=== PATIENT | female | born 1980 | race Two or more races ===

== ENCOUNTER 2020-12-15 09:49 | Emergency (ER) | payer BC, OTHER ==
[~2020-12-15] VITALS: Ht 167.6 cm; Wt 68.0 kg
[2020-12-15 10:53] LABS: Basophils # (auto) 0 10 ^3/uL (0-0.2); Basophils % (auto) 0.6 % (0.0-2.0); Eosinophils # (auto) 0 10 ^3/uL (0-0.8); Eosinophils % (auto) 0.4 % (0.0-7.0); Hematocrit 37.1 % (36.0-46.0); Hemoglobin 12.2 g/dL (12.2-16.2); Lymphocytes # (auto) 1.2 10 ^3/uL (0.4-5.4); Lymphocytes % (auto) 17.2 % (10.0-50.0); Mean Corpuscular Hemoglobin 26.3 pg (28.0-32.0); Mean Corpuscular Hgb Conc. 32.8 g/dL (32.0-36.0); Mean Corpuscular Volume 80.3 fL (80.0-100.0); Monocytes # (auto) 0.4 10 ^3/uL (0-1.3); Monocytes % (auto) 5.6 % (0.0-12.0); Neutrophils # (auto) 5.3 10 ^3/uL (1.6-8.6); Neutrophils % (auto) 76.2 % (37.0-80.0); Red Blood Cells 4.62 10^6/uL (4.0-5.20); Red Cell Distribution Width 15.4 % (11.8-14.3)
[2020-12-15 11:17] LABS: Potassium 4.5 mmol/L (3.5-5.1)
[2020-12-15 11:29] LABS: Albumin 3.8 g/dL (3.4-5.0); BUN/Creatinine Ratio 28.8; Bilirubin, Total 0.9 mg/dL (0.2-1.0); Calcium 8.5 mg/dL (8.5-10.1); Total Protein 7.6 g/dL (6.4-8.2)
[2020-12-15 12:32] LABS: Urine Bacteria FEW /hpf (None Seen); Urine Blood Negative /uL (Negative); Urine WBC 2 /hpf (0 - 5)
[2020-12-15 13:50] VITALS: BP 138/80
== END 2020-12-15 13:45 | disposition home or self-care (01) ==
LOC: ER 09:49
DX: R07.89 Other chest pain (principal); I16.0 Hypertensive urgency; I10 Essential (primary) hypertension; Z32.02 Encounter for pregnancy test, result negative
CPT/HCPCS: 36415; 71046; 80053; 81001; 81025; 84484; 85025; 85379; 93005